=== PATIENT | female | born 1980 | race Caucasian/White ===

== ENCOUNTER 2017-04-22 17:48 | Emergency (ER) | payer OTHER ==
[~2017-04-22] VITALS: Ht 160 cm; Wt 125.5 kg
[~2017-04-22 17:48] MED LIST: CIPRO500 MG PO; DEPO-PROVERA; DEPO-SUBQ104 MG/0.6 SQ; FLOMAX0.4 MG PO; HYDROCODON-ACE1 EAC7 PO; NOHOMEMEDS; OMEPRAZOLE20 MG PO; PERCOCET 5/31 TABLET PO; ZOFRAN ODT4 MG PO
[2017-04-22] MEDS ORDERED: LISINOPRIL10 MG PO (17:58)
[2017-04-22] MEDS ORDERED: VITAMIN D-32000 UNI2 PO (17:59)
[2017-04-22] MEDS ORDERED: ULTRAM50 MG PO (18:49)
[2017-04-22 18:59] VITALS: BP 158/88
== END 2017-04-22 19:13 | disposition home or self-care (01) ==
LOC: EME 17:48
DX: S92.502A Displaced unspecified fracture of left lesser toe(s), initial encounter for closed fracture (principal); W22.03XA Walked into furniture, initial encounter; I10 Essential (primary) hypertension
CPT/HCPCS: 73660; 99281; 99284